=== PATIENT | female | born 1945 | race Caucasian/White ===

== ENCOUNTER 2020-02-18 07:50 | Outpatient (CLI) | payer MEDICARE, OTHER, SELFPAY ==
--- NOTE | 2020-02-18 07:59 | MM_ITS ---
WS: [id number] BILATERAL DIGITAL SCREENING MAMMOGRAPHY WITH CAD CLINICAL INFORMATION: SCREENING HISTORY: Screening mammogram. No current complaints. COMPARISON: TECHNIQUE: Bilateral CC and MLO views. FINDINGS: The breasts are composed of heterogeneous fibroglandular density tissue, which can limit the detectio n of small underlying mass lesions. Punctate calcification. Lucent centered calcification right breas t. Partially obscured 7 mm ovoid density along the posterior nipple line left breast best visualized on the MLO view. Recommend spot compression views and ultrasound for further evaluation. MM/[id number] IMPRESSION: BI-RADS: 0-Incomplete: Need additional imaging evaluation FOLLOW UP: Need Additional Imaging RECOMMEND LEFT DIAGNOSTIC MAMMOGRAPHY WITH ULTRASOUND.
== END 2020-02-18 07:51 | disposition home or self-care (01) ==
LOC: RADSHAW 07:55
PROVIDERS: PCP Family Medicine; Visit Provider Family Medicine
DX: Z12.31 Encounter for screening mammogram for malignant neoplasm of breast (principal); R92.1 Mammographic calcification found on diagnostic imaging of breast
CPT/HCPCS: 77067

== ENCOUNTER 2020-03-01 09:40 | Outpatient (CLI) | payer MEDICARE, OTHER, SELFPAY ==
--- NOTE | 2020-03-01 09:45 | MM_ITS ---
WS: [id number] LEFT DIGITAL MAMMOGRAPHY WITH CAD CLINICAL INFORMATION: LT BREAST OVOID DENSITY COMPARISON: February 18, 2020 TECHNIQUE: 3 views of the left breast were obtained. FINDINGS: The left breast is composed of heterogeneous fibroglandular density tissue, which can limit the detec tion of small underlying mass lesions. Again seen is the partially obscured ovoid density along the posterior nipple line left breast. This is best seen on the MLO view. Ultrasound is pending. ULTRASOUND BREAST LEFT TECHNIQUE: Ultrasound left breast focused area of concern. CLINICAL INFORMATION: LT BREAST OVOID DENSITY COMPARISON: None. FINDINGS: Ultrasound left breast 9 o'clock position. There is a small hypoechoic lesion measuring 4.7 x 2.8 x 3 .5 mm. Associated internal echoes. This lesion is indeterminant and recommend further evaluation with ultrasound-guided biopsy. MM/MM spot [facility] [id number] IMPRESSION: BI-RADS: 4-Suspicious Finding-Biopsy Should Be Considered FOLLOW UP: US Guided Biopsy Recommended Recommend Ultrasound-guided biopsy ovoid density left breast.
== END 2020-03-01 09:41 | disposition home or self-care (01) ==
LOC: RADSHAW 09:44
PROVIDERS: PCP Family Medicine; Visit Provider Family Medicine
DX: R92.2 Inconclusive mammogram (principal); N63.25 Unspecified lump in the left breast, overlapping quadrants
CPT/HCPCS: 76642; 77065

== ENCOUNTER 2020-03-16 12:14 | Outpatient (CLI) | payer MEDICARE, OTHER, SELFPAY ==
--- NOTE | 2020-03-16 12:34 | US_ITS ---
WS: [id number] ULTRASOUND-GUIDED LEFT BREAST BIOPSY HISTORY: MAMMOGRAPHIC LEFT BREAST MASS COMPARISON: 03/01/2020 and 02/18/2020 Procedure, risks and complications are explained to the patient. Medications are reviewed. Consent is obtained. The mass in the LEFT breast is localized with ultrasound. Mass localized to 9:00, 2 cm from the nippl e. Skin is cleansed with ChloraPrep and anesthetized with 1% buffered lidocaine. Small dermatome is m florinda. Under sterile conditions mass is biopsied with a 14-gauge Achieve needle. Multiple core biopsies are performed. Material placed in formalin and sent to pathology for review. No complications encoun tered. Breast tissue marker (Bard ultrasound enhanced ribbon): Single. Patient left the radiology suite with no complications. Patient is instructed to return [place] [facility] [place] [facility] with any concerns. US/[place] [id number] IMPRESSION: 1. Uncomplicated core needle biopsy LEFT breast mass at 9:00. PATHOLOGY: Preliminary diagnosis. Benign breast tissue with fibrocystic changes . Usual ductal hyperplasia. Immunohistochemical stains are pending. RECOMMENDATION: Follow-up with Dr. Vega for final diagnosis.
== END 2020-03-16 12:15 | disposition home or self-care (01) ==
LOC: RAD 12:16
PROVIDERS: PCP Family Medicine; Visit Provider Family Medicine
DX: N63.25 Unspecified lump in the left breast, overlapping quadrants (principal); D24.2 Benign neoplasm of left breast
CPT/HCPCS: 19083; 88305

== ENCOUNTER 2021-03-02 13:16 | Outpatient (CLI) | payer MEDICARE, OTHER, SELFPAY ==
--- NOTE | 2021-03-02 13:44 | MM_ITS ---
WS: [id number] BILATERAL SCREENING DIGITAL MAMMOGRAM WITH CAD HISTORY: SCREENING COMPARISON: 03/01/2020 and 02/18/2020 and 02/17/2019 Bilateral CC and MLO views submitted. Computer aided detection analyzed. Breast composition: There are scattered areas of fibroglandular density. No suspicious masses, microc alcifications or architectural distortion. Prior biopsy clip 9:00 LEFT breast. Benign calcifications in each breast. MM/[place] [id number] IMPRESSION: BI-RADS: 2-Benign FOLLOW UP: 1 Year Follow-up
== END 2021-03-02 13:17 | disposition home or self-care (01) ==
LOC: RADSHAW 13:26
PROVIDERS: PCP Family Medicine; Visit Provider Family Medicine
DX: Z12.31 Encounter for screening mammogram for malignant neoplasm of breast (principal)
CPT/HCPCS: 77067

== ENCOUNTER 2021-09-29 06:54 | Outpatient (CLI) | payer MEDICARE, OTHER, SELFPAY ==
--- NOTE | 2021-09-29 07:18 | CT_ITS ---
WS: [id number] CT ABDOMEN AND PELVIS NONCONTRAST HISTORY: ACUTE DIVERTICULITIS TECHNIQUE: Imaging performed through the abdomen and pelvis. Coronal and sagittal reformats are submi tted. All CT scans at [facility] use at least one of these dose optimization techniques: auto mated exposure control; mA and/or kV adjustment per patient size (includes targeted exams where dose is matched to clinical indication); or iterative reconstruction. DLP: 731.46 mGy.cm COMPARISON: 12/14/2014 Lower thorax: Lung bases are clear. Visualized heart is normal. No hiatal hernia. Liver: Normal size liver with a granuloma. No mass or bile duct dilatation. Gallbladder: Normal gallbladder. Pancreas: Normal size and attenuation. Normal pancreatic duct. No pancreatitis or mass. Spleen: Normal. Adrenal glands: Normal. No mass. Right kidney: Normal size kidney with no mass or hydronephrosis. Left kidney: Normal size kidney with no mass or hydronephrosis. Aorta: Moderate to severe atherosclerosis abdominal aorta. No aneurysm. Atherosclerosis continues int o the common iliac arteries. No free fluid, intraperitoneal air or significant lymphadenopathy. GI tract: Stomach is not distended with contrast. No small bowel obstruction. Tortuous overlapping lo ops of colon with mild constipation. Numerous diverticula throughout the colon with a greater distrib ution in the descending and sigmoid colon. Colonic wall thickening throughout the sigmoid. Chronic di verticulosis without acute diverticulitis. Appendix not identified but no evidence for acute appendic itis. Abdominal wall: Negative. No hernia. Pelvis: Normal distended urinary bladder. Prior hysterectomy. No adenopathy or free fluid. Osseous structures: Moderate dextroscoliosis and degenerative disc disease throughout the lumbar spin e. CT/CT abdomen pelvis wo con [id number] IMPRESSION: 1. Extensive diverticulosis in the descending and sigmoid colon. No CT evidenc e for acute diverticulitis. 2. No ascites or abscess. No free air. 3. Prior hysterectomy. 4. Moderate atherosclerosis aorta.
== END 2021-09-29 06:55 | disposition home or self-care (01) ==
LOC: RAD 06:57
PROVIDERS: PCP Family Medicine; Visit Provider Family Medicine
DX: K57.92 Diverticulitis of intestine, part unspecified, without perforation or abscess without bleeding (principal); I70.0 Atherosclerosis of aorta; Z90.710 Acquired absence of both cervix and uterus; M51.36 Other intervertebral disc degeneration, lumbar region; M41.9 Scoliosis, unspecified
CPT/HCPCS: 74176

== ENCOUNTER → 2022-01-05 12:18 | Outpatient (BNVA) | payer MEDICARE, OTHER, SELFPAY | PROVIDERS: PCP Family Medicine; Visit Provider Clinical Nurse Specialist Adult Health | DX: R30.0 Dysuria (principal); M54.9 Dorsalgia, unspecified; N30.01 Acute cystitis with hematuria | CPT/HCPCS: 81000; 87086 ==

== ENCOUNTER → 2022-02-16 08:11 | Outpatient (BNVA) | payer MEDICARE, OTHER, SELFPAY | PROVIDERS: PCP Family Medicine; Visit Provider Family Medicine | DX: E03.9 Hypothyroidism, unspecified (principal); M25.50 Pain in unspecified joint; M54.50 Low back pain, unspecified; R53.83 Other fatigue; Z00.00 Encounter for general adult medical examination without abnormal findings | CPT/HCPCS: 85651; 86140; 86160; 86162; 86235; 86255; 86376 ==

== ENCOUNTER → 2022-02-21 11:52 | Outpatient (BNVA) | payer MEDICARE, OTHER, SELFPAY | PROVIDERS: PCP Family Medicine; Visit Provider Family Medicine | DX: M25.50 Pain in unspecified joint (principal); R76.8 Other specified abnormal immunological findings in serum | CPT/HCPCS: 81000 ==

== ENCOUNTER 2022-03-07 08:51 | Outpatient (CLI) | payer MEDICARE, OTHER, SELFPAY ==
--- NOTE | 2022-03-07 09:10 | MM_ITS ---
WS: [id number] BILATERAL SCREENING DIGITAL TOMOSYNTHESIS MAMMOGRAM WITH CAD HISTORY: SCREEN COMPARISON: 03/02/2021 and 02/18/2020 Bilateral CC and MLO views with tomosynthesis and synthetic mammography submitted. Computer aided det ection analyzed. Breast composition: There are scattered areas of fibroglandular density. No suspicious masses, microc alcifications or architectural distortion. Benign calcifications in each breast. Biopsy clip medial L EFT breast. MM/[place] [id number] IMPRESSION: BI-RADS: 2-Benign FOLLOW UP: 1 Year Follow-up
== END 2022-03-07 08:52 | disposition home or self-care (01) ==
LOC: RAD 08:52
PROVIDERS: PCP Family Medicine; Visit Provider Family Medicine
DX: Z12.31 Encounter for screening mammogram for malignant neoplasm of breast (principal)
CPT/HCPCS: 77063; 77067

== ENCOUNTER 2022-05-20 13:33 | Emergency (ER) | payer MEDICARE, SELFPAY ==
[2022-05-20 13:57] VITALS: BP 183/82; PULSE 94; RESP 18; TEMP 37.3; O2SAT 97
--- NOTE | 2022-05-20 14:11 | XRR_ITS ---
PROCEDURE INFORMATION: Exam: XR Chest Exam date and time: 05/20/2022 2:19 PM Age: 77 years old Clinical indication: Other: Disoriented and head pain; Additional info: Ams/pt had an onset of blurred vision and disorientation. It lasted only for a few minutes but is now left with head pain directly above RT eye TECHNIQUE: Imaging protocol: Radiologic exam of the chest. Views: 1 view. COMPARISON: CT abdomen pelvis wo con [id number] 09/29/2021 8:54 AM FINDINGS: Lungs: Unremarkable. No consolidation. Pleural spaces: Unremarkable. No pleural effusion. No pneumothorax. Heart/Mediastinum: Unremarkable. No cardiomegaly. Bones/joints: Unremarkable. XR/XR chest 1V portable [id number] IMPRESSION: No acute findings.
--- NOTE | 2022-05-20 14:11 | CTR_ITS ---
PROCEDURE INFORMATION: Exam: CT Head Without Contrast Exam date and time: 05/20/2022 2:31 PM Age: 77 years old Clinical indication: Altered mental status/memory loss; Confusion or disorientation; Additional info: AMS TECHNIQUE: Imaging protocol: Computed tomography of the head without contrast. Radiation optimization: All CT scans at this facility use at least one of these dose optimization techniques: automated exposure control; mA and/or kV adjustment per patient size (includes targeted exams where dose is matched to clinical indication); or iterative reconstruction. COMPARISON: No relevant prior studies available. RADIATION DOSE METRICS: Total DLP (mGy-cm): 1085.98 FINDINGS: Brain: No hemorrhage. No edema. Moderate diffuse cerebral atrophy. No significant white matter disease. No mass effect. Cerebral ventricles: No ventriculomegaly. Paranasal sinuses: Visualized sinuses are unremarkable. No fluid levels. Mastoid air cells: Visualized mastoid air cells are well aerated. Bones/joints: Unremarkable. No acute fracture. Soft tissues: Unremarkable. CT/CT head wo con* [id number] IMPRESSION: No acute intracranial abnormality.
--- NOTE | 2022-05-20 14:45 | ECG_ITS ---
[facility] Test Date: 2022-05-20 Pat Name: Sandi Lockhart Department: Room: Gender: Female Environmental Sampler: : 1945 Requested By: Juan Craig Order Number: [id number] Barry MD: Grazyna Moon M.D. Measurements Intervals Colt Rate: 86 P: 58 FL: 111 QRS: 66 QRSD: 76 T: 42 QT: 324 QTc: 389 Interpretive Statements SINUS RHYTHM WITH SHORT FL INTERVAL Compared to ECG 12/14/2014 18:13:54 ST (T wave) deviation no longer present Electronically Signed On 05-20-2022 15:23:36 [employer] by Grazyna Moon M.D. [id number]
[2022-05-20 15:28] VITALS: BP 165/79; PULSE 95; RESP 16; O2SAT 98
[2022-05-20 15:39] VITALS: BP 165/79; PULSE 87; RESP 16; O2SAT 98
[2022-05-20 15:45] LABS: Basophils # 0.1 10^3/uL (0.0-0.1); Basophils % 0.6 %; Eosinophils # 0.1 10^3/uL (0.0-0.8); Eosinophils % 0.6 %; Hematocrit 40.7 % (37.0-47.0); Hemoglobin 13.3 g/dL (11.5-15.3); Lymphocytes # 1.4 10^3/uL (0.8-4.8); Lymphocytes % 17.7 %; Mean Corpuscular HGB Conc 32.7 g/dL (30.0-36.0); Mean Corpuscular Hemoglobin 32.4 pg (28.0-34.0); Mean Platelet Volume 9.9 fL (7.4-10.4); Monocytes # 0.6 10^3/uL (0.2-0.9); Monocytes % 7.2 %; Neutrophils # 5.78 10^3/uL (1.8-7.7); Neutrophils % 73.5 %; Nucleated Red Blood Cells % 0 %; Platelet Count 259 10^3/cmm (130-400); Red Blood Count 4.11 10^6/uL (4.1-5.3); Red Cell Distribution Width 12.5 % (12.1-15.1); White Blood Count 7.9 10^3/uL (4.0-10.0)
[2022-05-20 16:04] LABS: Alanine Aminotransferase 11 U/L (0-33); Albumin Level 4.2 g/dL (3.5-5.2); Alkaline Phosphatase 93 U/L (35-105); Anion Gap 14.2 (5-19); Aspartate Amino Transferase 19 U/L (0-32); Blood Urea Nitrogen 11 mg/dL (8-23); Carbon Dioxide 26 mmol/L (22-29); Chloride 102 mmol/L (98-107); Globulin 2.6 g/dL (1.3-4.6); Glucose 113 mg/dL (65-115); Osmolality Calculated 286 mOsm/kg (285-295); Potassium 4.2 mmol/L (3.5-5.1); Sodium 138 mmol/L (136-145); Total Bilirubin 0.2 mg/dL (0.15-1.2); Total Protein 6.8 g/dL (6.6-8.7)
[2022-05-20 16:34] LABS: C Reactive Protein 5.4 mg/L (0.0-4.9)
[2022-05-20 16:35] LABS: Erythrocyte Sedimentation Rate 8 mm/hr (0-15)
[2022-05-20 17:58] VITALS: BP 175/72; PULSE 100; RESP 16; O2SAT 95
[2022-05-20] MEDS: cloNIDine 0.1 mg Tablet PO (18:27)
[2022-05-20 18:31] VITALS: BP 175/72; PULSE 100; RESP 16; O2SAT 95
--- NOTE | 2022-05-20 21:13 | ED_ITS ---
HPI - Altered Mental Status General: Chief Complaint: Altered Mental Status Stated Complaint: Blood pressure is very high Time Seen by Provider: 05/20/22 15:13 Source: patient Mode of arrival: ambulatory Limitations: no limitations History of Present Illness: 77-year-old female patient presents to the e mergency department stating that she was at [facility] about 1130 and was totally fine had no issues concerns no dizziness no chest pain no shortness of breath no headache states she walked out as her was getting the car and became very disoriented had some visual disturbances stated she knew the direction of the car where her normally parked and saw the license plate but everything was blurry and cannot make words of it. Patient states she got into the car and verbalized her that they were not in the right car. Patient states this just lasted for 1 to 2 minutes. Patient arrives to the emergency department symptom-free. Patient states she does not have any headache patient does not have any dizziness chest pain shortness of breath patient states she does not have any numbness or tingling or any weakness. Patient states she has never had an episode like this. Patient states she does take lorazepam in the a.m. that was prescribed to her for blood pressure control. Patient states that her blood pressure was high upon arriving to the ER. Patient has history of hypothyroidism. Patient states other than that she is healthy. Associated symptoms: Deny depression, homicidal ideation or suicidal ideation Review of Systems Const: Denies: fever(s), chills, body aches, change in appetite, change in weight, fatigue, malaise or diaphoresis Eyes: Denies: change in vision, blurry vision, blind spots, photophobia, eye discomfort, eye discharge, eye redness, floaters or seeing flashes ENMT: Denies: throat pain, uvular edema, enlarged tonsils, odynophagia, hoarseness, mouth pain, swelling of lips/tongue, oral sores, bleeding gums, dental pain, dry mouth, ear or mastoid pain, ear discharge, change in hearing, tinnitus, disequilibrium, nasal discharge, nasal congestion, post nasal drip or sinus pain Card: Denies: chest pain, palpitations, irregular heart rhythm, edema, swelling of feet/ankles, lightheadedness, syncope, pre-syncope, dyspnea on exertion, orthopnea, leg pain with exertion or acrocyanosis Resp: Denies: dyspnea, productive cough, non-productive cough, wheezing, stridor, pain on inspiration, change in phlegm color, hemoptysis or chest congestion GI: Denies: abdominal pain, nausea, vomiting, hematemesis, dysphagia, diarrhea, constipation, GI cramping, change in bowel habits or rectal pain : Denies: flank pain, difficulty voiding, dysuria, urinary frequency, urinary urgency, urinary hesitancy or hematuria Musc: Denies: neck pain, back pain, extremity pain, extremity swelling, joint pain, joint swelling, joint redness, joint warmth or deformity Skin/Breast: Denies: rash, pruritus, erythema, sores, new lesions, changes in skin color or dry skin Neuro: Denies: headache(s), numbness in extremities, weakness in extremities, sensory changes, lack of coordination, difficulty walking, frequent falls, dizziness, vertigo, confusion, behavioral changes, Slurred speech present, difficulty communicating thoughts or seizure-like activity Psych: Denies: anxiety, depression, suicidal ideation or homicidal ideation Endo: Denies: polyuria, polydipsia, tired all the time, cold intolerance, excessive sweating, flushing, hot flashes or heat intolerance Nael/Lymph: Denies: easy bruising, easy bleeding, petechiae, purpura, enlarged lymph nodes or tender lymph nodes All/Imm: Denies: urticaria, throat swelling, tongue swelling, facial swelling, acute wheezing or itchy eyes PFSH ED PFSH: Medical History Diverticulosis Generalized anxiety disorder Hypothyroidism Surgical History Hx of hysterectomy Social History Smoking and tobacco status: never smoked Alcohol intake: never Physical Exam Const: COMMON NORMALS: no acute distress, patient oriented x3, healthy appearing, alert and well nourished GENERAL APPEARANCE: cooperative, comfortable, well kempt and well developed; not ill appearing ORIENTATION/CONSCIOUSNESS: Yes awake, Yes oriented to person, Yes oriented to place and Yes oriented to time HENMT: COMMON NORMALS: normocephalic, atraumatic, hearing grossly normal bilaterally, external ears normal, EAC's normal, TM's normal bilaterally, Normal external nose present, Normal nasal mucous membranes and turbinates present and moist oral mucous membranes HEAD & SCALP: normal to inspection, normocephalic and atraumatic FACE & SINUS: normal facial exam, sinuses nontender and face symmetric NOSE: Normal external nose present, Normal nares present, Normal nasal mucous membranes and turbinates present, No nasal discharge present and Abnormal external nose present EXTERNAL EAR: Yes external ears normal and Yes mastoids normal EXTERNAL AUDITORY CANAL: EAC's normal TYMPANIC MEMBRANE: TM's normal bilaterally MOUTH: Normal oral and palatal mucosa present, lip normal, tongue normal and Normal salivary glands and ducts present THROAT: no uvular edema Eye: COMMON NORMALS: Equal, round and reactive pupils present, EOMs intact bilaterally, conjunctivae normal, no scleral icterus and no papilledema GENERAL EYE: appearance normal, both eyes and all related structures EYELID: eyelids normal CONJUNCTIVA: Yes conjunctivae normal SCLERA: sclerae normal CORNEA: Yes corneas normal PUPIL: Yes Equal, round and reactive pupils present DIRECT OPHTHALMOSCOPY: Yes no papilledema Neck/C-Spine: COMMON NORMALS: full ROM, no lymphadenopathy, supple, no meningeal signs, no JVD and Thyroid normal GENERAL: Yes normal visual inspection and Yes trachea midline THYROID: Thyroid normal CERVICAL SPINE: Yes cervical ROM normal Lymph: LYMPHATIC: no lymphadenopathy noted and no lymphedema noted Chest: COMMONS NORMALS: normal inspection of the chest and normal palpation of entire chest wall Resp: COMMON NORMALS: normal respiratory effort, No retractions, No use of accessory muscles and clear to auscultation bilaterally EFFORT & INSPECTION: Yes able to speak in complete sentences and Yes symmetric chest movement AUSCULTATION: clear to auscultation bilaterally Cardio: COMMON NORMALS: no JVD, regular rate and regular rhythm RATE: regular rate RHYTHM: regular rhythm GI: COMMON NORMALS: Normal to inspection, nondistended, normoactive bowel sounds present, Soft to palpation, non-tender, No hepatosplenomegaly present, no masses and no bruits INSPECTION: Yes normal to inspection AUSCULTATION: Yes normoactive bowel sounds PALPATION: Yes Soft to palpation and Yes No hepatosplenomegaly present PERCUSSION: normal to percussion RECTAL EXAM: deferred : COMMON NORMALS: Yes no CVA tenderness, Yes normal external appearance, Yes normal appearance of the vagina, Yes normal appearance of the cervix, Yes normal bimanual exam, Yes No adnexal tenderness and Yes no masses BLADDER/KIDNEY EXAM: Yes no CVA tenderness BIMANUAL EXAM - VAGINA & UTERUS: Yes normal bimanual exam Back/Pelvis: COMMON NORMALS: no CVA tenderness, thoracic and lumbar spine normal to inspection, no thoracic nor lumbar tenderness, thoraco-lumbar ROM normal and straight leg raise negative bilaterally THORACIC SPINE/UPPER BACK: Yes normal to inspection LUMBAR SPINE/LOWER BACK: Yes normal to inspection Extremity: COMMON NORMALS: normal to inspection, full ROM and capillary refill normal GENERAL: Yes normal exam except as noted Neuro: COMMON NORMALS: patient oriented x3, CN's II-XII intact bilaterally, moves all extremities, no focal motor deficits, no sensory deficits noted, deep tendon reflexes 2+ bilaterally and gait normal SENSORIUM/ORIENTATION: Yes alert, Yes oriented to person, Yes oriented to place and Yes oriented to time MENINGEAL SIGNS: Yes no meningeal signs CRANIAL NERVES: Yes CN normal except as noted SPEECH: speech normal GAIT: Yes Normal gait present SENSORY EXAM: Yes extremities MOTOR EXAM: 5/5 motor strength present throughout Psych: COMMON NORMALS: mental status grossly normal, Normal thought process present, cooperative, normal affect, speech normal, activity/motor behavior normal, denies hallucinations, denies homicidal ideation and denies suicidal ideation APPEARANCE: Yes grossly normal and Yes well kempt ATTITUDE: Yes calm ACTIVITY/MOTOR BEHAVIOR: Yes appropriate eye contact SPEECH: Yes normal speech THOUGHT PROCESS: Normal thought process present THOUGHT CONTENT: Yes Normal thought content present ATTENTION/CONCENTRATION: Yes attention grossly intact MEMORY/COGNITION: Yes memory grossly intact INSIGHT: Good insight present (Psych) JUDGEMENT: Good judgement present (Psych) Skin: COMMON NORMALS: no rashes or lesions noted, no wounds, turgor normal, no jaundice, no petechiae and no mottling GENERAL SKIN EXAM: no rashes or lesions noted and turgor normal Course Vital Signs: Vital signs: Vital Signs Temperature 99.1 F 05/20/22 13:57 Pulse Rate 100 05/20/22 18:31 Respiratory Rate 16 05/20/22 18:31 Blood Pressure 175/72 05/20/22 18:31 Pulse Oximetry 95 05/20/22 18:31 Oxygen Delivery Me thod 05/20/22 17:58 MDM - Altered Mental Status Medical Decision Making Patient is well-appearing nontoxic and in no acute distress. 77-year-old female patient presents to the emergency department stating that she was at [facility] about 1130 and was totally fine had no issues concerns no dizziness no chest pain no shortness of breath no headache states she walked out as her was getting the car and became very disoriented had some visual disturbances stated she knew the direction of the car where her normally parked and saw the license plate but everything was blurry and cannot make words of it. Patient states she got into the car and verbalized her that they were not in the right car. Patient states this just lasted for 1 to 2 minutes. Patient arrives to the emergency department symptom-free. Patient states she does not have any headache patient does not have any dizziness chest pain shortness of breath patient states she does not have any numbness or tingling or any weakness. Patient states she has never had an episode like this. Patient states she does take lorazepam in the a.m. that was prescribed to her for blood pressure control. Patient states that her blood pressure was high upon arriving to the ER. Patient has history of hypothyroidism. Patient states other than that she is healthy. Patient does not have any neurological deficits noted. Patient states she does have history of having pain behind her right eye. I did order CT of the head which was negative for any acute findings. I did consider temporal arteritis as a differential ordered CRP and sed rate which were within normal limits. Patient's chest x-ray was without any acute findings. Patient remained symptom-free while in the emergency department. Patient was concerned with her blood pressure clonidine 0.1 mg given here in the emergency department. Patient states she does not want to take anything for this blood pressure medicine as she sees her doc on may 23 and will discuss at that time. Pt has no dizziness with turning head. Pt denies any recent illness. At this point I do not feel patient would benefit from any further emergent testing. I did discuss with patient close return precautions as well as home care. Family was at the bedside and I discussed this with family as well. Patient is medically cleared at this time and appropriate for discharge Differential Diagnosis Likely altered mental status, dementia, hypoglycemia, hyponatremia, subarachnoid hemorrhage and sepsis Lab Data 05/20/22 15:37 05/20/22 15:37 Radiology Impressions Chest X-Ray 05/20/22 14:11 IMPRESSION: No acute findings. Head CT 05/20/22 14:11 IMPRESSION: No acute intracranial abnormality. Laboratory Results WBC 7.9 10^3/uL (4.0-10.0) 05/20/22 15:37 RBC 4.11 10^6/uL (4.1-5.3) 05/20/22 15:37 Hgb 13.3 g/dL (11.5-15.3) 05/20/22 15:37 Hct 40.7 % (37.0-47.0) 05/20/22 15:37 MCV 99.0 fl (81-99) 05/20/22 15:37 MCH 32.4 pg (28.0-34.0) 05/20/22 15:37 MCHC 32.7 g/dL (30.0-36.0) 05/20/22 15:37 RDW 12.5 % (12.1-15.1) 05/20/22 15:37 Plt Count 259 10^3/cmm (130-400) 05/20/22 15:37 MPV 9.9 fL (7.4-10.4) 05/20/22 15:37 Neut % (Auto) 73.5 % 05/20/22 15:37 Lymph % (Auto) 17.7 % 05/20/22 15:37 [place] % (Auto) 7.2 % 05/20/22 15:37 Eos % (Auto) 0.6 % 05/20/22 15:37 Baso % (Auto) 0.6 % 05/20/22 15:37 Neut # (Auto) 5.78 10^3/uL (1.8-7.7) 05/20/22 15:37 Lymph # (Auto) 1.4 10^3/uL (0.8-4.8) 05/20/22 15:37 [place] # (Auto) 0.6 10^3/uL (0.2-0.9) 05/20/22 15:37 Eos # (Auto) 0.1 10^3/uL (0.0-0.8) 05/20/22 15:37 Baso # (Auto) 0.1 10^3/uL (0.0-0.1) 05/20/22 15:37 Nucleated RBC % (auto) 0 % 05/20/22 15:37 Nucleated RBCs # 0.0 /100WBC 05/20/22 15:37 ESR 8 mm/hr (0-15) 05/20/22 15:37 Sodium 138 mmol/L (136-145) 05/20/22 15:37 Potassium 4.2 mmol/L (3.5-5.1) 05/20/22 15:37 Chloride 102 mmol/L (98-107) 05/20/22 15:37 Carbon Dioxide 26 mmol/L (22-29) 05/20/22 15:37 Anion Gap 14.2 (5-19) 05/20/22 15:37 BUN 11 mg/dL (8-23) 05/20/22 15:37 Creatinine 0.7 mg/dL (0.5-0.9) 05/20/22 15:37 GFR Calculation Not Reportable 05/20/22 15:37 Glucose 113 mg/dL (65-115) 05/20/22 15:37 Calculated Osmolality 286 mOsm/kg (285-295) 05/20/22 15:37 Calcium 9.0 mg/dL (8.5-10.5) 05/20/22 15:37 Total Bilirubin 0.2 mg/dL (0.15-1.2) 05/20/22 15:37 AST 19 U/L (0-32) 05/20/22 15:37 ALT 11 U/L (0-33) 05/20/22 15:37 Alkaline Phosphatase 93 U/L (35-105) 05/20/22 15:37 C-Reactive Protein 5.4 mg/L (0.0-4.9) H 05/20/22 15:37 Total Protein 6.8 g/dL (6.6-8.7) 05/20/22 15:37 Albumin 4.2 g/dL (3.5-5.2) 05/20/22 15:37 Globulin 2.6 g/dL (1.3-4.6) 05/20/22 15:37 Discharge Plan Discharge Patient Disposition: Home Clinical Impression: Vision disturbance Condition: Stable Prescriptions: No Action lorazepam 0.5 mg tablet See Rx Instructions .ROUTE .COMPLEX Qty: 60 0RF Rx Instructions: TAKE 1/2 (ONE-HALF) TABLET BY MOUTH TWICE DAILY AND 1 AT BEDTIME levothyroxine 25 mcg tablet 25 mcg PO DAILY Discharge Orders: Discharge ED (Routine); Ordered 05/20/22 Ordered By: Arabella Tubbs Referrals: Daryl Vega DO [Primary Care Provider] - Discharge Diet: Advance as tolerated Discharge Activity: Increase activity as tolerated Patient Instructions: Opioid Safety, Pain Management Activity Restrictions/Additional Instructions: Please keep your appointment On may 23 as scheduled with PCP Please take daily baby aspirin Please return to the ER with any worsening or concerning symptoms Please keep blood pressure journal x 1 week and report to your PCP Coding Level of Care Code ED Medication Manager for Aristeo Navarro
== END 2022-05-20 18:32 | disposition home or self-care (01) ==
PROVIDERS: Emergency Medicine; Emergency Provider Registered Nurse; PCP Family Medicine
DX: H53.9 Unspecified visual disturbance (principal)
CPT/HCPCS: 70450; 71045; 80053; 85025; 85651; 86140; 93005; 99285

== ENCOUNTER → 2022-05-23 10:10 | Outpatient (BNVA) | payer MEDICARE, SELFPAY | PROVIDERS: PCP Family Medicine; Visit Provider Clinical Nurse Specialist Adult Health | DX: E03.9 Hypothyroidism, unspecified (principal); H53.9 Unspecified visual disturbance; I10 Essential (primary) hypertension | CPT/HCPCS: 84443 ==

== ENCOUNTER 2023-03-09 10:19 | Outpatient (CLI) | payer MEDICARE, SELFPAY ==
--- NOTE | 2023-03-09 10:24 | MM_ITS ---
WS: [id number] Bilateral screening 3D tomosynthesis digital mammogram, 03/09/2023 Clinical Data: SCREENING Comparison: 03/07/2022, 03/02/2021, 03/01/2020, 02/18/2020, 02/17/2019, 02/15/2018, 02/14/2017, 02/10/2016 , 02/08/2015, 02/05/2014, 02/04/2013, 01/17/2012, 01/18/2011, 01/15/2009, 01/23/2008, 01/03/2007. Findings: The breast parenchymal pattern shows fibroglandular tissue. No spiculated masses or clustered calcifi cations are seen. There are no secondary signs of carcinoma. Impression: 1. Negative bilateral mammogram unchanged. 2. Recommend annual screening mammograms. MM/[place] [id number] BIRADS: 1-Negative FOLLOW UP: 1 Year Follow-up The CAD checkering machine adjuster was used.
== END 2023-03-09 10:20 | disposition home or self-care (01) ==
PROVIDERS: PCP Physician Assistant; Visit Provider Physician Assistant
DX: Z12.31 Encounter for screening mammogram for malignant neoplasm of breast (principal)
CPT/HCPCS: 77063; 77067

== ENCOUNTER 2023-05-22 07:45 | Outpatient (CLI) | payer MEDICARE, SELFPAY ==
--- NOTE | 2023-05-22 07:52 | CTR_ITS ---
PROCEDURE INFORMATION: Exam: CT Abdomen And Pelvis With Contrast Exam date and time: 05/22/2023 9:24 AM Age: 78 years old Clinical indication: Abdominal pain; Localized; Left lower quadrant (llq); Prior surgery; Surgery date: 6+ months; Surgery type: Hyst; Patient HX: Left lower quad pain x 1 week, history of diverticulitis; Additional info: Llq pain TECHNIQUE: Imaging protocol: Computed tomography of the abdomen and pelvis with contrast. Radiation optimization: All CT scans at this facility use at least one of these dose optimization techniques: automated exposure control; mA and/or kV adjustment per patient size (includes targeted exams where dose is matched to clinical indication); or iterative reconstruction. Contrast material: OMNI 350; Contrast volume: 95 ml; Contrast route: INTRAVENOUS (IV); COMPARISON: CT abdomen pelvis wo con [id number] 09/29/2021 8:54 AM RADIATION DOSE METRICS: Total DLP (mGy-cm): 263.39 FINDINGS: Lungs: See Bones/joints finding. Diaphragm: Small hiatal hernia. Liver: No significant liver pathology. Gallbladder and bile ducts: No significant gallbladder pathology. No biliary dilatation. Pancreas: No significant pancreatic pathology. Spleen: Stable 1 cm splenic cyst. Adrenal glands: No significant adrenal pathology. Kidneys and ureters: Subcentimeter renal cortical hypodensities, indeterminate by criteria but statistically most likely representing cysts. Stomach and bowel: Colonic diverticulosis without evidence of focal inflammatory change. Findings are greatest at the level of the sigmoid colon where there is also mural thickening. Prior hysterectomy. Appendix: Appendix within normal limits. Intraperitoneal space: No ascites. Vasculature: No abdominal aortic aneurysm. Lymph nodes: No enlarged nodes by criteria. Urinary bladder: Urinary bladder is nondistended limiting assessment of the wall. Reproductive: No significant adnexal pathology. Bones/joints: Dextrocurvature lumbar spine with degenerative change.No significant pathology at the imaged lung bases. Moderate degenerative change present in the spine. Soft tissues: Small fat containing umbilical hernia. CT/CT abdomen pelvis w con* [id number] IMPRESSION: Extensive colonic diverticulosis, greatest in the level of the sigmoid colon without evidence of acute inflammatory change.
[2023-05-22] MEDS: iohexol 350 mg/mL 500 mL Btl (per mL) PO (08:55)
[2023-05-22] MEDS: iohexol 350 mg/mL 500 mL Btl (per mL) IV (09:36)
== END 2023-05-22 07:46 | disposition home or self-care (01) ==
LOC: RAD 07:46
PROVIDERS: PCP Physician Assistant; Visit Provider Physician Assistant
DX: K57.30 Diverticulosis of large intestine without perforation or abscess without bleeding (principal); R10.32 Left lower quadrant pain
CPT/HCPCS: 74177; Q9967

== ENCOUNTER 2024-03-11 08:33 | Outpatient (CLI) | payer MEDICARE, SELFPAY ==
--- NOTE | 2024-03-11 08:37 | MM_ITS ---
WS: [id number] BILATERAL 3D TOMOSYNTHESIS DIGITAL SCREENING MAMMOGRAPHY WITH CAD CLINICAL INFORMATION: SCREENING HISTORY: Screening mammogram. No current complaints. COMPARISON: 2022 TECHNIQUE: Bilateral CC and MLO views. FINDINGS: The breasts are composed of heterogeneous fibroglandular density tissue, which can limit the detectio n of small underlying mass lesions. No suspicious mass, asymmetry, calcifications, or architectural d istortion. No evidence of malignancy. Biopsy marker LEFT breast. Lucent centered calcification RIGHT breast. A few incidental punctate calcifications. MM/MM [facility] tomosynthesis [id number] IMPRESSION: DENSITY:The breasts are heterogeneously dense, which may obscure small masses. BI-RADS: 2 - Benign FOLLOW UP: 1 Year Follow-up Recommend return to annual screening mammography.
== END 2024-03-11 08:34 | disposition home or self-care (01) ==
LOC: RAD 08:33
PROVIDERS: PCP Physician Assistant; Visit Provider Electrodiagnostic Medicine
DX: Z12.31 Encounter for screening mammogram for malignant neoplasm of breast (principal); R92.333 Mammographic heterogeneous density, bilateral breasts; R92.1 Mammographic calcification found on diagnostic imaging of breast
CPT/HCPCS: 77063; 77067

== ENCOUNTER 2025-03-16 08:47 | Outpatient (CLI) | payer MEDICARE, OTHER, SELFPAY ==
--- NOTE | 2025-03-16 08:53 | MM_ITS ---
WS: [id number] BILATERAL SCREENING DIGITAL TOMOSYNTHESIS MAMMOGRAM WITH CAD HISTORY: SCREENING COMPARISON: 03/07/2022, 03/09/2023, 03/11/2024 Bilateral CC and MLO views with tomosynthesis and synthetic mammography submitted. Computer aided detection analyzed. Breast composition: The breasts are heterogeneously dense, which may obscure small masses. No suspicious masses, microcalcifications or architectural distortion. Biopsy clip in the medial LEFT breast. Adjacent to the biopsy clip is an area of increasing density which has become more prominent since 2021. This is a new asymmetry with mild progression over several years. There are additional benign calcifications within each breast. Asymmetry measures approximately 12 x 11 x 15 mm. There are no suspicious grouping of calcifications. MM/MM [facility] tomosynthesis [id number] IMPRESSION: BI-RADS: 0 - Incomplete: Need additional imaging evaluation FOLLOW UP: Need Additional Imaging LEFT hbreast: Spot compression views (CC and MLO). True ML. Ultrasound to follo w if abnormality persists.
== END 2025-03-16 08:48 | disposition home or self-care (01) ==
PROVIDERS: PCP Physician Assistant; Visit Provider Electrodiagnostic Medicine
DX: Z12.31 Encounter for screening mammogram for malignant neoplasm of breast (principal); R92.333 Mammographic heterogeneous density, bilateral breasts; Z96.89 Presence of other specified functional implants; R92.1 Mammographic calcification found on diagnostic imaging of breast; N64.89 Other specified disorders of breast
CPT/HCPCS: 77063; 77067

== ENCOUNTER 2025-03-23 07:45 | Outpatient (CLI) | payer MEDICARE, OTHER, SELFPAY ==
--- NOTE | 2025-03-23 07:52 | MM_ITS ---
WS: [id number] ADDITIONAL VIEWS LEFT MAMMOGRAM WITH DIGITAL BREAST TOMOSYNTHESIS. LEFT breast ultrasound, limited HISTORY: Follow-up new asymmetry medial LEFT breast. COMPARISON: 03/16/2025, 03/11/2024, 03/09/2023 Spot compression views LEFT breast in CC, MLO projections and true ML submitted with digital breast tomosynthesis and SM. Breast composition: The breasts are heterogeneously dense, which may obscure small masses. Asymmetry in the medial LEFT breast is reidentified. This irregular mass is associated with the prior biopsy clip. Mass measures 1.0 x 1.5 x 1.0 cm. No significant distortion. There are benign calcifications in the LEFT breast. Ultrasound to follow. LEFT breast ultrasound, limited. Irregular hypoechoic mass is identified at 10:00 measuring 1.2 x 1.6 x 1.1 cm. This mass is closely associated with the prior biopsy site. This new asymmetry has developed since 2019. The clip is centrally positioned. There is mild increased vascularity. MM/MM diag [facility] tomosynthesis [id number] IMPRESSION: BI-RADS: 4 - Suspicious Finding - Biopsy Should Be Considered FOLLOW UP: Biopsy Recommended Notified Jc Birmingham DO at 03/23/2025 8:36 AM. Report discussed with Michael islas
== END 2025-03-23 07:46 | disposition home or self-care (01) ==
LOC: RAD 07:47
PROVIDERS: PCP Electrodiagnostic Medicine; Visit Provider Electrodiagnostic Medicine
DX: R92.8 Other abnormal and inconclusive findings on diagnostic imaging of breast (principal); R92.333 Mammographic heterogeneous density, bilateral breasts; N63.22 Unspecified lump in the left breast, upper inner quadrant; R92.1 Mammographic calcification found on diagnostic imaging of breast
CPT/HCPCS: 76642; 77061; 77063